=== PATIENT | male | born 1940 | race Caucasian/White ===

== ENCOUNTER → 2016-07-02 | Outpatient (CLI) | payer MEDICARE, OTHER ==
[~2016-07-02] MED LIST: ALDACTONE 25MG25 MG NG; AMIODARONE200 MG PO; AUGMENTIN 875-1 EACH PO; COREG 6.25MG6.25 MG PO; DIGOXIN0.125 MG PO; ELIQUIS5 MG PO; GLIPIZIDE ER2.5 MG PO; LASIX 40MG. TAB40 MG PO; LIPITOR40 MG PO; LISINOPRIL5 MG PO; LOSARTAN POTASS50 MG PO; MECLIZINE12.5 MG PO; METFORMIN 500M500 M1 PO; METOPROLOL SUC100 M1 PO; NEXIUM40 MG PO; NORTRIPTYLINE H25 M1 PO; NYSTATIN C30 GM/TUB1 TP; VITAMIN D50000 IU PO; XANAX 0.25MG0.25 MG PO
== END ==
LOC: LAB 12:24
DX: I25.10 Atherosclerotic heart disease of native coronary artery without angina pectoris (principal); I48.91 Unspecified atrial fibrillation; E78.5 Hyperlipidemia, unspecified; I10 Essential (primary) hypertension; R06.02 Shortness of breath